=== PATIENT | male | born 1950 | race Caucasian/White ===

== ENCOUNTER → 2025-04-01 12:43 | Outpatient (REF) | payer MEDICARE, OTHER, SELFPAY ==
[2025-04-01 13:29] LABS: Hematocrit 36.3 % (39.0-52.0); Hemoglobin 13.2 g/dL (13.0-18.0); Mean Corp Hgb Conc. 36.4 g/dL (33.0-37.0); Mean Corpuscular Volume 91.9 fL (80.0-94.0); Nucleated Red Blood Cells % 0 % (-); Platelet Count 127 10^3/uL (130-400); Red Cell Dist. Width 13.9 % (11.5-14.5)
[2025-04-01 13:48] LABS: ALT (SGPT) 31 U/L (0-50); AST (SGOT) 57 U/L (17-59); Albumin 4.7 g/dl (3.5-5.0); Alkaline Phosphatase 69 U/L (38-126); Blood Urea Nitrogen 17 mg/dl (9-20); Calcium 8.9 mg/dl (8.4-10.2); Carbon Dioxide 26 mmol/L (22-30); Chloride 105 mmol/L (98-107); Glucose 105 mg/dl (70-99); Potassium 5.2 mmol/L (3.5-5.1); Sodium 137 mmol/L (135-145); Total Protein 6.9 g/dl (6.3-8.2); eGFR > 60.00
== END ==
LOC: SDSPAT 12:43
PROVIDERS: ATTENDING PHYSICIAN Student in an Organized Health Care Education/Training Program; FAMILY PHYSICIAN Family Medicine; OTHER PHYSICIAN Internal Medicine Cardiovascular Disease
DX: R94.39 Abnormal result of other cardiovascular function study (principal)
CPT/HCPCS: 36415; 80053; 85025; 93005

== ENCOUNTER 2025-04-06 08:45 | Day surgery (SDC) | payer MEDICARE, OTHER, SELFPAY ==
[2025-04-01 13:04] VITALS: BMI 35.7
[2025-04-06] VITALS (19 sets, daily range): BP systolic 98–127; BP diastolic 60–81; BMI 35.1
[2025-04-06 09:20] LABS: Hematocrit 37.0 % (39.0-52.0); Hemoglobin 13.2 g/dL (13.0-18.0); Mean Corp Hgb Conc. 35.7 g/dL (33.0-37.0); Mean Corpuscular Volume 92.7 fL (80.0-94.0); Platelet Count 126 10^3/uL (130-400); Red Cell Dist. Width 14.0 % (11.5-14.5)
[2025-04-06 09:32] LABS: INR 1.01; PT 13.6 Sec (11.4-14.6)
[2025-04-06 09:33] LABS: APTT 26.5 Sec (23.4-35.0)
[2025-04-06 10:51] LABS: ALT (SGPT) 27 U/L (0-50); AST (SGOT) 47 U/L (17-59); Albumin 4.9 g/dl (3.5-5.0); Alkaline Phosphatase 61 U/L (38-126); Blood Urea Nitrogen 15 mg/dl (9-20); Calcium 9.1 mg/dl (8.4-10.2); Carbon Dioxide 27 mmol/L (22-30); Chloride 104 mmol/L (98-107); Estimated Creatinine Clearance 92 ml/min; Glucose 107 mg/dl (70-99); Potassium 4.5 mmol/L (3.5-5.1); Sodium 140 mmol/L (135-145); Total Protein 7.1 g/dl (6.3-8.2); eGFR > 60.00
[2025-04-06] MEDS: NSS 1000 IV (11:43)
--- NOTE | 2025-04-06 13:05 | ITS.CL.PN ---
[facility] - Procedure Note
Procedure
Procedure Note:
CARDIAC CATHETERIZATION REPORT
Date of Procedure: 04/06/2025
Referring: Dr. Wayne Trevino MD
Indication: ICD shock for Vfib and positive cardiac stress test
PROCEDURE(S)
1. right heart catheterization
2. left heart catheterization
3. coronary angiography
ACCESS
1. 6F right radial artery (closure: radial band)
2. 5F right antecubital vein (closure: manual hemostasis)
CATHETERS
1. 5F Douglas-Selena
2. 6F JR4
3. 6F JL3.5
MODERATE SEDATION: 30 minutes of moderate sedation was utilized. An independent medical office technician was present to assist with and help manage the patient's level of consciousness and physiologic status.
HEMODYNAMIC DATA
LV 108/6 (EDP 17) mmHg
AO 103/72 (mean 86) mmHg
RA 13 mmHg
RV 44/5 (EDP 11) mmHg
PA 46/26 (mean 32) mmHg
PCWP 19 mmHg
SaO2 96.0%
SvO2 67.8%
Hb 12.6 g/dL
CO/CI 5.48/2.59 L/min/m2
SVR 1065 dsc*-5
PVR 2.3 Wood units
CORONARY ANGIOGRAPHY
Dominance: Right
LM: Large with mild disease
LAD: Large vessel giving rise to a small D1 and large D2. There is a stent just distal to the takeoff of the D2 with mild ISR. There is a focal 30 to 40% stenosis in the mid-LAD just proximal to the proximal stent edge and otherwise mild luminal
irregularities only.
LCx: Large vessel giving rise to two very small marginal branches, a moderate caliber OM3, and a small LPL branch. There is a focal 30% stenosis in the OM3 and otherwise mild luminal irregularities only.
RCA: Large vessel giving rise to a moderate caliber RPDA and moderate caliber RPL branch. There is diffuse mild nonobstructive disease. There is a stent in the distal RCA with mild to moderate ISR
RADIATION: dose 445 mGy; DAP 31 Gy*cm2; fluoroscopy time 4.7 min
CONCLUSIONS
1. 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
2. No aortic stenosis on hemodynamic pullback
3. Nonobstructive coronary artery disease in a right dominant system as described
RECOMMENDATIONS
1. Aggressive secondary prevention of coronary artery disease.
2. Medical management of ventricular arrhythmia not related to obstructive epicardial coronary artery disease.
3. Ongoing management of atrial fibrillation (of note, patient has had recurrent Afib since at least 04/01/25)
Copy to: Dr. Wayne Trevino MD (pay station attendant); Dr. Zachariah Felix MD (potato chip sorter); Dr. Alexandr Srinivasan DO (PCP)
Signed: Naseem Knapp MD, PhD
== END 2025-04-06 16:40 | disposition home or self-care (01) ==
LOC: CATH 08:45
PROVIDERS: ATTENDING PHYSICIAN Student in an Organized Health Care Education/Training Program; FAMILY PHYSICIAN Family Medicine; OTHER PHYSICIAN Internal Medicine Cardiovascular Disease; OTHER PHYSICIAN Internal Medicine Clinical Cardiac Electrophysiology
DX: I25.10 Atherosclerotic heart disease of native coronary artery without angina pectoris (principal); I27.20 Pulmonary hypertension, unspecified; I48.91 Unspecified atrial fibrillation; I10 Essential (primary) hypertension; E78.5 Hyperlipidemia, unspecified; Z86.74 Personal history of sudden cardiac arrest; Z95.810 Presence of automatic (implantable) cardiac defibrillator; E66.9 Obesity, unspecified; Z68.35 Body mass index [BMI] 35.0-35.9, adult; G47.33 Obstructive sleep apnea (adult) (pediatric); F41.9 Anxiety disorder, unspecified; F32.A Depression, unspecified; N40.1 Benign prostatic hyperplasia with lower urinary tract symptoms; R33.8 Other retention of urine; I34.0 Nonrheumatic mitral (valve) insufficiency; I48.92 Unspecified atrial flutter; Z79.899 Other long term (current) drug therapy; Z98.890 Other specified postprocedural states; Z95.5 Presence of coronary angioplasty implant and graft
CPT/HCPCS: 99152; 99153; 80053; 85027; 85610; 85730; 93460; C1769; C1894; Q9967